=== PATIENT | male | born 1975 ===

== ENCOUNTER → 2023-05-06 | Outpatient (CLI) | payer SELFPAY | LOC: LAB SHORT 14:03 → PLD 14:03 | DX: R21 Rash and other nonspecific skin eruption (principal) | CPT/HCPCS: 88312 ==

== ENCOUNTER 2023-10-25 22:12 | Emergency (ER) | payer OTHER ==
[~2023-10-25] VITALS: Ht 172.7 cm; Wt 77.1 kg
[2023-10-25 22:38] VITALS: BP 158/88
[2023-10-25] MEDS ORDERED: CEPH500 PO (22:46)
== END 2023-10-25 23:29 | disposition home or self-care (01) ==
LOC: ER 22:12
DX: L03.115 Cellulitis of right lower limb (principal); L03.116 Cellulitis of left lower limb; Z59.00 Homelessness unspecified; F17.200 Nicotine dependence, unspecified, uncomplicated
CPT/HCPCS: 96372; 99282-25; A9270; J1885